=== PATIENT | female | born 1965 | race Asian ===

== ENCOUNTER → 2017-09-27 | Outpatient (CLI) | payer OTHER ==
[2017-09-27 19:24] LABS: EOS # 0.1 (0.04-0.40); EOS % 1.1 % (1.0-5.0); HEMATOCRIT 35.4 % (37.0-47.0); HEMOGLOBIN 11.1 g/dL (12.5-16.0); LYMPH# 2.8 (1.50-4.00); MEAN CORPUSCULAR HGB CONC 31 g/dL (33-37); MEAN PLATELET VOLUME 10.4 fl (7.4-10.4); MONO # 0.5 (0.20-0.80); NEU # 3.6 (1.40-6.50); PLATELET COUNT 359 K/mm3 (130-400); RED BLOOD COUNT 5.51 M/mm3 (4.10-5.30); RED CELL DISTRIBUTION WIDTH 15.6 % (11.5-14.5)
[2017-09-27 19:34] LABS: MEAN CELL VOLUME 64 fl (78-100); MEAN CORPUSCULAR HEMOGLOBIN 20 pg (27-31)
[2017-09-27 21:38] LABS: ALBUMIN 4.2 g/dL (3.5-5.0); BUN/CREATININE RATIO 18.7 (6.0-26.0); CALCIUM 9.4 mg/dL (8.4-10.2); POTASSIUM 3.8 mmol/L (3.6-5.0); TOTAL BILIRUBIN 0.1 mg/dL (0.2-1.3); TOTAL PROTEIN 7.7 g/dL (6.3-8.2)
== END ==
LOC: LAB 16:40
PROVIDERS: Nurse Practitioner Family
DX: I10 Essential (primary) hypertension (principal); Z86.32 Personal history of gestational diabetes; Z13.220 Encounter for screening for lipoid disorders; D56.3 Thalassemia minor; Z88.8 Allergy status to other drugs, medicaments and biological substances